=== PATIENT | male | born 2000 | race African-American/Black ===

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

== ENCOUNTER 2021-03-03 16:09 | Emergency (ER) | payer OTHER ==
[~2021-03-03] VITALS: Wt 79.4 kg
[~2021-03-03 16:09] MED LIST changes: -CLARITIN10 MG PO
[2021-03-03 16:13] VITALS: BP 136/70
[2021-03-03] MEDS ORDERED: FLONASE ALLERG9.9 ML NAS (16:23)
[2021-03-03] MEDS ORDERED: CLARITIN10 MG PO (16:23)
== END 2021-03-03 16:37 | disposition home or self-care (01) ==
LOC: ED 16:09
DX: J30.9 Allergic rhinitis, unspecified (principal); Z20.822 Contact with and (suspected) exposure to COVID-19; Z88.8 Allergy status to other drugs, medicaments and biological substances; Z79.899 Other long term (current) drug therapy

== ENCOUNTER 2021-10-16 05:39 | Emergency (ER) | payer OTHER ==
[~2021-10-16] VITALS: Ht 187.9 cm; Wt 74.8 kg
[~2021-10-16 05:39] MED LIST changes: +CLARITIN10 MG PO
[2021-10-16 05:48] VITALS: BP 131/79
== END 2021-10-16 06:50 | disposition home or self-care (01) ==
LOC: ED 05:39
DX: J06.9 Acute upper respiratory infection, unspecified (principal); Z20.822 Contact with and (suspected) exposure to COVID-19; J45.909 Unspecified asthma, uncomplicated; F17.200 Nicotine dependence, unspecified, uncomplicated; Z88.1 Allergy status to other antibiotic agents; Z79.899 Other long term (current) drug therapy

== ENCOUNTER → 2021-11-22 | Outpatient (CLI) | payer OTHER | END | disposition home or self-care (01) | LOC: COVID19 16:57 | PROVIDERS: ATTEND Internal Medicine | DX: Z20.822 Contact with and (suspected) exposure to COVID-19 (principal) ==

== ENCOUNTER 2022-06-27 19:35 | Emergency (ER) | payer OTHER ==
[~2022-06-27] VITALS: Ht 187.9 cm; Wt 81.6 kg
[2022-06-27 20:05] VITALS: BP 119/63
[2022-06-27] MEDS ORDERED: PROVENTIL HFA6.7 GM PO ×2 (20:52)
[2022-06-27] MEDS ORDERED: VIBRA-TAB100 MG PO ×2 (20:52)
== END 2022-06-27 21:04 | disposition home or self-care (01) ==
LOC: ED 19:35
DX: J45.901 Unspecified asthma with (acute) exacerbation (principal); Z20.822 Contact with and (suspected) exposure to COVID-19; Z88.1 Allergy status to other antibiotic agents; F17.200 Nicotine dependence, unspecified, uncomplicated

== ENCOUNTER 2022-07-01 06:42 | Emergency (ER) | payer OTHER ==
[~2022-07-01 06:42] MED LIST changes: +PROVENTIL HFA6.7 GM PO; +VIBRA-TAB100 MG PO
[2022-07-01 08:29] VITALS: BP 132/80
[2022-07-01] MEDS ORDERED: PREDNISONE20 M1 PO (10:25)
== END 2022-07-01 10:44 | disposition home or self-care (01) ==
LOC: ED 06:42
DX: J45.901 Unspecified asthma with (acute) exacerbation (principal); Z20.822 Contact with and (suspected) exposure to COVID-19; Z88.1 Allergy status to other antibiotic agents